=== PATIENT | male | born 1950 ===

== ENCOUNTER 2018-10-13 07:39 | Emergency (ER) | payer BC ==
--- NOTE | 2018-10-13 08:53 | CR ---
DATE OF SERVICE: 10/13/18 CLINICAL DATA: chest pain AP PORTABLE CHEST: The exam is under penetrated most likely related to the patient's size. Comparison is made to a prior exam dated 08/19/18. The patient has taken a poor inspiration. The heart size is at the upper limits of normal. The lungs appear clear. No pneumothorax. No pleural effusions. No evidence of acute intrathoracic disease. [id number] [facility]
--- NOTE | 2018-10-13 08:55 | EDM.PDOC ---
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 He started to feel sudden onset of shape prickly pain in the upper sternal region of the chest, the pain was sharp and lasted for about 1 minutes. During the same time he felt his heart racing. He got his blood pressure checked at the work place was 160/ 90mmhg. Hence, he came back into emergency room. Pt is very anxious in the emergency room. His chest pain come and goes and is sharp. No radiation of pain. No diaphoresis, nausea or vomiting. No incontinence of stool or urine.He felt Short of breath initially but not now. rates his pain at 1/10, when it is not sharp. 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 Left Chest Pain Score (Numeric/FACES): 2 - Related Data Allergies Allergy/AdvReac Type Severity Reaction Status Date / Time No Known Allergies Allergy Verified 10/13/18 08:14 Home Meds: Home Meds Aspirin [Nick Chewable] 81 mg PO DAILY 10/13/18 [History] Lisinopril 2.5 mg PO DAILY 10/13/18 [History] Minocycline [Minocin] 100 mg PO BID 10/13/18 [History] Pravastatin Sodium 10 mg PO QPM 10/13/18 [History] Past Medical History HEENT History: Reports: Other (See Below) Other HEENT History: double vision Cardiovascular History: Reports: Arrhythmia, High Cholesterol, Hypertension, PVD Musculoskeletal History: Reports: Fracture Neurological History: Reports: None Dermatologic History: Reports: Other (See Below) Other Dermatologic History: acne - Past Surgical History HEENT Surgical History: Reports: None Cardiovascular Surgical History: Reports: Percutaneous Transluminal Angioplasty Neurological Surgical History: Reports: Lumbar Spine Musculoskeletal Surgical History: Reports: Arthroscopic Knee, Other (See Below) Other Musculoskeletal Surgeries/Procedures:: wrist surgery ED ROS GENERAL - Review of Systems Review Of Systems: See Below Constitutional: Denies: Fever, Chills HEENT: Denies: Ear Pain, Rhinitis, Throat Pain Respiratory: Denies: Shortness of Breath, Pleuritic Chest Pain, Cough, Sputum Cardiovascular: Reports: Chest Pain, Blood Pressure Problem, Palpitations. Denies: Claudication, Dyspnea on Exertion, Lightheadedness, Syncope GI/Abdominal: Denies: Abdominal Pain, Nausea, Vomiting : Denies: Dysuria, Frequency Musculoskeletal: Denies: Joint Pain, Joint Swelling Skin: Denies: Cyanosis, Jaundice, Pruritis, Rash Neurological: Denies: Confusion, Dizziness, Headache, Numbness, Tingling ED EXAM, GENERAL - Physical Exam Exam: See Below Exam Limited By: No Limitations General Appearance: Alert, WD/WN, No Apparent Distress, Anxious Eye Exam: Bilateral Eye: EOMI, PERRL Ears: Normal External Exam, Normal Canal, Hearing Grossly Normal, Normal TMs Ear Exam: Bilateral Ear: Auricle Normal, Canal Normal, TM normal Nose: Normal Inspection, Normal Mucosa, No Blood Throat/Mouth: Normal Inspection, Normal Lips, Normal Teeth, Normal Gums, Normal Oropharynx, Normal Voice, No Airway Compromise Head: Atraumatic, Normocephalic Neck: Normal Inspection, Supple, Non-Tender, Full Range of Motion Respiratory/Chest: No Respiratory Distress, Lungs Clear, Normal Breath Sounds, No Accessory Muscle Use, Chest Non-Tender Cardiovascular: Normal Peripheral Pulses, No Edema, No Gallop, No JVD, No Murmur , No Rub, Bradycardia Peripheral Pulses: 2+: Carotid (L), Carotid (R), Radial (L), Radial (R) GI/Abdominal: Normal Bowel Sounds, Soft, Non-Tender, No Organomegaly, No Distention, No Abnormal Bruit, No Mass Back Exam: Normal Inspection, Full Range of Motion, NT Extremities: Normal Inspection, Normal Range of Motion, Non-Tender, Normal Capillary Refill, No Pedal Edema Neurological: Alert, Oriented, CN II-XII Intact, Normal Cognition, Normal Gait, Normal Reflexes, No Motor/Sensory Deficits Skin Exam: Warm, Intact EKG INTERPRETATION EKG Date: 10/13/18 Rate (Beats/Min): 64 [place]: Normal P-Wave: Present QRS: Normal ST-T: Normal QT: Normal Course - Vital Signs Text/Narrative:: Pt's EKG is in Normal sinus rhythm with heart rate of 64. 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 He does not appear in any acute discomfort and his chest pain is sharp and intermittent. Pain does not radiate, or does not get worse with deep breathing. Rates his pain now at 1/10. He did take 4 aspirin before he came into emergency room. His Blood pressure now is 134 /83mmhg. Labs are back His CBC is normal. His CMP is stable. Troponin is negative. Monitor shows sinus bradycardia, I have not seen any runs of tachy cardia. On further question patient claims he has similar episode in July of 2017, he was seen at [facility]. I did go through his old records. He has workup by with Cardiac cath which showed atherosclerotic disease with no significant luminal obstruction and also he had Ablation done in January of 2018. I did contact , director of event sales at [facility] and discuss with her.Her recommendation was to have patient on out patient, Zio patch for cardiac monitoring and also get a cardiac stress test . Pt to followup with Dr. Recinos. I have discussed the recommendation with patient. His blood pressure has improved, and his anxiety level is better. He does agree with the plan. Pt did have Zio patch applied today. Also has been scheduled for Cardiac stress test on 10/20/18. Followup in the emergency room if symptoms worsen. Last Recorded V/S: Last Vital Signs Temp 98.6 F 10/13/18 07:44 Pulse 48 L 10/13/18 08:46 Resp 16 10/13/18 08:46 BP 142/59 H 10/13/18 08:46 Pulse Ox 100 10/13/18 08:46 - Orders/Labs/Meds Orders: Active Orders 24 hr Category Date Time Status EKG Documentation Completion [RC] ASDIRECTED Care 10/13/18 07:52 Active Chest 1V Frontal [CR] Stat Exams 10/13/18 07:51 Taken TSH ULTRASENSITIVE [CHEM] Stat Lab 10/13/18 08:00 Received Labs: Laboratory Tests 10/13/18 10/13/18 Range/Units 08:00 08:00 WBC 6.9 D (4.0-11.0) K/uL RBC 4.45 L (4.50-6.50) M/uL Hgb 14.0 (13.0-18.0) g/dL Hct 41.0 (40.0-54.0) % MCV 92 (76-96) fL MCH 31.5 (27.0-32.0) pg MCHC 34.1 (31.0-35.0) g/dL RDW 13.2 (11.0-16.0) % Plt Count 176 (150-400) K/uL MPV 9.6 (6.0-10.0) fL Neut % (Auto) 69.0 (45.0-70.0) % Lymph % (Auto) 21.2 (20.0-40.0) % [place] % (Auto) 7.6 (3.0-10.0) % Eos % (Auto) 1.9 (1.0-5.0) % Baso % (Auto) 0.3 (0.0-0.5) % Neut # (Auto) 4.78 (2.00-7.50) K/uL Lymph # (Auto) 1.47 L (1.50-4.00) K/uL [place] # (Auto) 0.53 (0.20-0.80) K/uL Eos # (Auto) 0.13 (0.04-0.40) K/uL Baso # (Auto) 0.02 (0.02-0.10) K/uL Sodium 140 (136-145) mmol/L Potassium 4.3 (3.5-5.1) mmol/L Chloride 107 (98-107) mmol/L Carbon Dioxide 24.0 (21.0-32.0) mmol/L Anion Gap 13.3 (5.0-15.0) mmol/L BUN 18 (8-26) mg/dL Creatinine 1.11 (0.70-1.30) mg/dL Est Cr Clr Drug Dosing TNP Estimated GFR (MDRD) > 60 (>60) MLS/MIN BUN/Creatinine Ratio 16.2 (6-25) Glucose 119 H (74-100) mg/dL Calcium 8.3 L (8.5-10.1) mg/dL Total Bilirubin 0.7 D (0.0-1.0) mg/dL AST 30 (15-37) U/L ALT 46 (12-78) U/L Alkaline Phosphatase 64 (46-116) U/L Troponin I < 0.017 (0.000-0.060) ng/mL Total Protein 6.6 (6.4-8.2) g/dL Albumin 3.6 (3.4-5.0) g/dL Globulin 3.0 (2.2-4.2) g/dL Albumin/Globulin Ratio 1.2 (0.8-2.0) Departure - Departure Time of Disposition: 10:00 Disposition: Home, Self-Care 01 Condition: Fair Clinical Impression: Tachycardia-bradycardia syndrome - Discharge Information *PRESCRIPTION DRUG MONITORING PROGRAM REVIEWED*: Not Applicable *COPY OF PRESCRIPTION DRUG MONITORING REPORT IN PATIENT SHON: Not Applicable Referrals: PCP,None [Primary Care Provider] - Additional Instructions: I did contact , director of event sales at [facility] and discuss with her.Her recommendation was to have patient on out patient, Zio patch for cardiac monitoring and also get a cardiac stress test . Pt to followup with Dr. Recinos. I have discussed the recommendation with patient. His blood pressure has improved, and his anxiety level is better. He does agree with the plan. Pt did have Zio patch applied today. Also has been scheduled for Cardiac stress test on 10/20/18. Followup in the emergency room if symptoms worsen. - Problem List & Annotations (1) Tachycardia-bradycardia syndrome SNOMED Code(s): 89275444 Code(s): I49.5 - SICK SINUS SYNDROME Status: Acute Current Visit: Yes - Problem List Review Problem List Initiated/Reviewed/Updated: Yes - My Orders Last 24 Hours: My Active Orders 10/13/18 07:51 Chest 1V Frontal [CR] Stat 10/13/18 07:52 EKG Documentation Completion [RC] ASDIRECTED 10/13/18 08:00 TSH ULTRASENSITIVE [CHEM] Stat - Assessment/Plan Last 24 Hours: My Active Orders 10/13/18 07:51 Chest 1V Frontal [CR] Stat 10/13/18 07:52 EKG Documentation Completion [RC] ASDIRECTED 10/13/18 08:00 TSH ULTRASENSITIVE [CHEM] Stat Assessment:: Sinus Julio tachy syndrome Plan: I did contact , director of event sales at [facility] and discuss with her.Her recommendation was to have patient on out patient, Zio patch for cardiac monitoring and also get a cardiac stress test . Pt to followup with Dr. Recinos. I have discussed the recommendation with patient. His blood pressure has improved, and his anxiety level is better. He does agree with the plan. Pt did have Zio patch applied today. Also has been scheduled for Cardiac stress test on 10/20/18. Followup in the emergency room if symptoms worsen.
[2018-10-13 09:47] VITALS: BP 134/83; PULSE 45
== END 2018-10-13 10:11 | disposition home or self-care (01) ==
LOC: LB.ED 07:39
DX: I49.5 Sick sinus syndrome (principal); E78.00 Pure hypercholesterolemia, unspecified; I10 Essential (primary) hypertension; Z79.82 Long term (current) use of aspirin; Z79.899 Other long term (current) drug therapy
CPT/HCPCS: 0296T; 0297T; 36415; 71045; 80053; 84443; 84484; 85025; 93005; 99285

== ENCOUNTER 2019-11-24 12:58 | Emergency (ER) | payer BC | END 2019-11-24 13:20 | disposition home or self-care (01) | LOC: LB.ED 12:58 | DX: Z20.828 Contact with and (suspected) exposure to other viral communicable diseases (principal) | CPT/HCPCS: 99282; U0002 ==